=== PATIENT | female | born 1985 | race Caucasian/White ===

== ENCOUNTER 2016-09-21 09:43 | Emergency (ER) | payer BC, OTHER ==
[2016-09-21] MEDS ORDERED: ACETAMINOPHEN 325 MG TABLET PO ONE (13:45)
--- NOTE | 2016-09-21 13:45 | ER Document Report ---
HPI - HPI Onset: Yesterday Onset/Duration: Sudden Pain Level: 2 Context: 30-year-old female with 19 week twin is complaining of fever, runny nose and cough with generalized myalgias since yesterday. She came in to be checked because she does not feel the twins moving as much as usual. 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 Associated Symptoms: None Exacerbated by: Denies Relieved by: Denies Similar symptoms previously: Yes Recently seen / treated by doctor: No - ROS ROS below otherwise negative: Yes Systems Reviewed and Negative: Yes All other systems reviewed and negative - CARDIOVASCULAR Cardiovascular: DENIES: Chest pain - DERM Skin Color: Normal Past Medical History - General Information source: Patient - Social History Smoking Status: Never Smoker Chew tobacco use (# tins/day): No Frequency of alcohol use: None Drug Abuse: None Lives with: Spouse/Significant other Family History: Reviewed & Not Pertinent Patient has suicidal ideation: No Patient has homicidal ideation: No - Medical History Medical History: Negative Renal/ Medical History: Denies: Hx Peritoneal Dialysis Surgical Hx: Negative Vertical Provider Document - CONSTITUTIONAL Agree With Documented VS: Yes Exam Limitations: No Limitations General Appearance: No Apparent Distress - INFECTION CONTROL TRAVEL OUTSIDE OF THE [place] IN LAST 30 DAYS: No - HEENT HEENT: Pharyngeal Erythema - mild. negative: Conjuctival Injection Notes: boggy nares - NECK Neck: Supple, Lymphadenopathy-Right. negative: Lymphadenopathy-Left - RESPIRATORY Respiratory: Breath Sounds Normal, No Respiratory Distress O2 Sat by Pulse Oximetry: 99 - CARDIOVASCULAR Cardiovascular: Regular Rate, Regular Rhythm - GI/ABDOMEN Gastrointestinal: Abdomen Soft, Abdomen Non-Tender, No Organomegaly - MUSCULOSKELETAL/EXTREMETIES Musculoskeletal/Extremeties: SAADIA PAULA - NEURO Level of Consciousness: Awake, Alert - DERM Integumentary: Warm, Dry, No Rash Course - Re-evaluation Re-evalutation: 09/21/16 14:42 Looks well, discussed the case with Dr. Patino for disposition home which he agrees. - Vital Signs Vital signs: Temp Pulse Resp BP Pulse Ox 98.6 F 118 H 16 108/74 99 09/21/16 10:13 09/21/16 10:13 09/21/16 10:13 09/21/16 10:13 09/21/16 10:13 Discharge - Discharge Clinical Impression: influenza A, viable twins Condition: Good Disposition: HOME, SELF-CARE Instructions: Influenza ([facility]), Acetaminophen, Upper Respiratory Illness ([facility]) Additional Instructions: plenty of fluids to er if worse, any cramping or bleeding rest cool mist humidifier, wash it daily see your doctor for follow up, recheck on wednesday Forms: Return to Work Referrals: KORTNEY GUNDERSON MD [Primary Care Provider] - Follow up as needed
[2016-09-21 14:53] VITALS: BP 95/63
== END 2016-09-21 14:52 | disposition home or self-care (01) ==
LOC: ER 09:43
DX: J09.X2 Influenza due to identified novel influenza A virus with other respiratory manifestations (principal); O30.002 Twin pregnancy, unspecified number of placenta and unspecified number of amniotic sacs, second trimester; R50.9 Fever, unspecified; R09.89 Other specified symptoms and signs involving the circulatory and respiratory systems; R05 Cough; M79.1 Myalgia; Z3A.19 19 weeks gestation of pregnancy
CPT/HCPCS: 76815; 87804; 99284

== ENCOUNTER 2016-12-14 09:32 | Outpatient (CLI) | payer BC, OTHER ==
[2016-12-14 10:29] LABS: APPEARANCE,URINE SLIGHTLY-CLOUDY; BILIRUBIN,URINE NEGATIVE (NEGATIVE); GLUCOSE, URINE NEGATIVE (NEGATIVE); KETONES,URINE NEGATIVE (NEGATIVE); LEUKOCYTE ESTERASE,URINE NEGATIVE (NEGATIVE); NITRITE,URINE NEGATIVE (NEGATIVE); PROTEIN,URINE NEGATIVE (NEGATIVE); URINE SPECIFIC GRAVITY 1.009; UROBILINOGEN,URINE NEGATIVE mg/dL (<2.0)
[2016-12-14 10:47] LABS: URINE CREATININE 68.5 mg/dL (16-327); URINE PROTEIN 13.2 mg/dL (<12)
[2016-12-14 10:56] LABS: URINE BARBITURATES SCREEN NEGATIVE; URINE METHADONE SCREEN NEGATIVE; URINE OPIATES LOW NEGATIVE; URINE PHENCYCLIDINE SCREEN NEGATIVE
[2016-12-14 11:06] LABS: ABSOLUTE LYMPHOCYTES (AUTO) 1.6 10^3/uL (0.5-4.7); ABSOLUTE MONOCYTES (AUTO) 0.7 10^3/uL (0.1-1.4); ABSOLUTE NEUT (AUTO) 8.1 10^3/uL (1.7-8.2); BASOPHILS % (AUTO) 0.2 % (0-2); EOSINOPHILS % (AUTO) 0.3 % (0-6); HEMATOCRIT 36.6 % (36.0-47.0); HEMOGLOBIN 12.9 g/dL (12.0-15.5); HGB HCT DIFFERENCE 2.1; LYMPHOCYTES % (AUTO) 15.7 % (13-45); MEAN CORPUSCULAR HEMOGLOBIN 35.4 pg (27.0-33.4); MEAN CORPUSCULAR HGB CONC 35.3 g/dL (32.0-36.0); MEAN CORPUSCULAR VOLUME 100 fl (80-97); MONOCYTES % (AUTO) 6.4 % (3-13); RED BLOOD COUNT 3.64 10^6/uL (3.72-5.28); RED CELL DISTRIBUTION WIDTH 13.2 % (11.5-14.0); SEGMENTED NEUTROPHILS % (AUTO) 77.4 % (42-78); WHITE BLOOD COUNT 10.5 10^3/uL (4.0-10.5)
[2016-12-14 11:22] LABS: ALANINE AMINOTRANSFERASE 25 U/L (9-52); ALBUMIN 2.8 g/dL (3.5-5.0); ALKALINE PHOSPHATASE 103 U/L (38-126); ANION GAP 8 (5-19); ASPARTATE AMINO TRANSFERASE 17 U/L (14-36); BILIRUBIN,DIRECT 0.3 mg/dL (0.0-0.4); BILIRUBIN,TOTAL 0.5 mg/dL (0.2-1.3); BLOOD UREA NITROGEN 8 mg/dL (7-20); CALCIUM 9.2 mg/dL (8.4-10.2); CARBON DIOXIDE 19 mmol/L (22-30); CHLORIDE 109 mmol/L (98-107); GLUCOSE 78 mg/dL (75-110); LDH 404 U/L (313-618); POTASSIUM 4.3 mmol/L (3.6-5.0); SODIUM 135.8 mmol/L (137-145); TOTAL PROTEIN 4.9 g/dL (6.3-8.2); URIC ACID 5.8 mg/dL (2.5-6.2)
--- NOTE | 2016-12-14 12:29 | L&D Progress Notes ---
PROGRESS NOTES Datetime Report Generated by CPN: 12/14/2016 12:29 PROGRESS NOTE Comment: 31 yo presents from MFM for hypertensive workup pt reports headache and visual changes EDC 7/13/17 EGA 31.4 abdomen nontender FHTs appropriate for gestational age no elevated pressures today labs wnl thrombocytopenia noted-131 precautions reviewed follow up in office on fabby FETUS A Monitoring: External US SIGNATURE SIGNATURE: [id number] Assignment: Mayra Devine MD Signature: with User ID: [email or web address] : with User ID: [email or web address]
== END 2016-12-14 12:29 | disposition home or self-care (01) ==
LOC: LC 09:32
PROVIDERS: ATTEND Obstetrics & Gynecology
PROC: 4A1HXCZ Monitoring of Products of Conception, Cardiac Rate, External Approach (ICD-10-PCS; principal; 2016-12-14)
DX: O26.893 Other specified pregnancy related conditions, third trimester (principal); R51 Headache; O99.89 Other specified diseases and conditions complicating pregnancy, childbirth and the puerperium; H53.9 Unspecified visual disturbance; Z3A.31 31 weeks gestation of pregnancy
CPT/HCPCS: 36415; 80053; 80307; 81001; 82570; 83615; 84156; 84550; 85025

== ENCOUNTER → 2016-12-23 | Outpatient (CLI) | payer BC, OTHER ==
[2016-12-23 18:48] LABS: ABSOLUTE EOSINOPHILS # (AUTO) 0.1 10^3/uL (0.0-0.6); ABSOLUTE LYMPHOCYTES (AUTO) 1.9 10^3/uL (0.5-4.7); ABSOLUTE MONOCYTES (AUTO) 0.6 10^3/uL (0.1-1.4); ABSOLUTE NEUT (AUTO) 9.4 10^3/uL (1.7-8.2); BASOPHILS % (AUTO) 0.1 % (0-2); EOSINOPHILS % (AUTO) 0.5 % (0-6); HEMATOCRIT 38.4 % (36.0-47.0); HEMOGLOBIN 12.7 g/dL (12.0-15.5); HGB HCT DIFFERENCE -0.3; LYMPHOCYTES % (AUTO) 16.2 % (13-45); MEAN CORPUSCULAR HEMOGLOBIN 33.9 pg (27.0-33.4); MEAN CORPUSCULAR VOLUME 103 fl (80-97); MONOCYTES % (AUTO) 4.6 % (3-13); RED BLOOD COUNT 3.73 10^6/uL (3.72-5.28); RED CELL DISTRIBUTION WIDTH 13.8 % (11.5-14.0); SEGMENTED NEUTROPHILS % (AUTO) 78.6 % (42-78)
[2016-12-23 18:52] LABS: ALANINE AMINOTRANSFERASE 17 U/L (9-52); ALBUMIN 3.1 g/dL (3.5-5.0); ALKALINE PHOSPHATASE 120 U/L (38-126); ANION GAP 10 (5-19); ASPARTATE AMINO TRANSFERASE 19 U/L (14-36); BILIRUBIN,DIRECT 0.3 mg/dL (0.0-0.4); BILIRUBIN,TOTAL 0.5 mg/dL (0.2-1.3); BLOOD UREA NITROGEN 9 mg/dL (7-20); CALCIUM 9.5 mg/dL (8.4-10.2); CARBON DIOXIDE 18 mmol/L (22-30); CHLORIDE 107 mmol/L (98-107); CREATININE RESULT 0.71 mg/dL (0.52-1.25); GLUCOSE 126 mg/dL (75-110); LDH 383 U/L (313-618); POTASSIUM 3.7 mmol/L (3.6-5.0); TOTAL PROTEIN 5.6 g/dL (6.3-8.2); URIC ACID 6.1 mg/dL (2.5-6.2)
== END ==
LOC: OD 17:09
PROVIDERS: ATTEND Specialist
DX: O13.9 Gestational [pregnancy-induced] hypertension without significant proteinuria, unspecified trimester (principal); Z13.0 Encounter for screening for diseases of the blood and blood-forming organs and certain disorders involving the immune mechanism
CPT/HCPCS: 36415; 80053; 83615; 84550; 85025

== ENCOUNTER 2016-12-28 08:22 | Outpatient (CLI) | payer BC, OTHER ==
[2016-12-28 09:17] LABS: APPEARANCE,URINE SLIGHTLY-CLOUDY; BILIRUBIN,URINE NEGATIVE (NEGATIVE); GLUCOSE, URINE NEGATIVE (NEGATIVE); KETONES,URINE NEGATIVE (NEGATIVE); LEUKOCYTE ESTERASE,URINE NEGATIVE (NEGATIVE); NITRITE,URINE NEGATIVE (NEGATIVE); PROTEIN,URINE NEGATIVE (NEGATIVE); URINE SPECIFIC GRAVITY 1.008; UROBILINOGEN,URINE NEGATIVE mg/dL (<2.0)
[2016-12-28 09:27] LABS: ALANINE AMINOTRANSFERASE 20 U/L (9-52); ALBUMIN 2.9 g/dL (3.5-5.0); ALKALINE PHOSPHATASE 108 U/L (38-126); ANION GAP 7 (5-19); ASPARTATE AMINO TRANSFERASE 20 U/L (14-36); BILIRUBIN,DIRECT 0.4 mg/dL (0.0-0.4); BILIRUBIN,TOTAL 0.5 mg/dL (0.2-1.3); BLOOD UREA NITROGEN 10 mg/dL (7-20); CARBON DIOXIDE 19 mmol/L (22-30); CHLORIDE 111 mmol/L (98-107); CREATININE RESULT 0.76 mg/dL (0.52-1.25); GLUCOSE 91 mg/dL (75-110); LDH 415 U/L (313-618); POTASSIUM 4.2 mmol/L (3.6-5.0); SODIUM 136.6 mmol/L (137-145); TOTAL PROTEIN 5.3 g/dL (6.3-8.2); URIC ACID 6.8 mg/dL (2.5-6.2)
[2016-12-28 09:30] LABS: URINE BARBITURATES SCREEN NEGATIVE; URINE METHADONE SCREEN NEGATIVE; URINE OPIATES LOW NEGATIVE; URINE PHENCYCLIDINE SCREEN NEGATIVE
--- NOTE | 2016-12-28 09:35 | Non Stress Test Report ---
Non Stress Test Datetime Report Generated by CPN: 12/28/2016 09:35 DEMOGRAPHIC EGA NST: 33.4 INDICATION Indication for Study: Multiple Gestation MONITORING Monitor Explained: Monitor Explained; Test Explained; Patient Verbalized Understanding Time on Monitor: 12/28/2016 08:47 Time off Monitor: 12/28/2016 09:19 NST Duration: 32 NST INTERVENTIONS NST Interventions: PO Hydration BABY A: [id number] BABY A Movement : Present Contraction Frequency : x0 FHR Baseline : 1 Accelerations : 15X15 Decelerations : None Variability : Moderate 6-25bpm NST Review: Meets Criteria for Reactive NST NST Review and Verified By : D Bellavance RNC NST Results: Reactive BABY B Movement: Present FHR Baseline: 145 Accelerations: 15X15 Decelerations: None Variability: Moderate 6-25bpm NST Review: Meets Criteria for Reactive NST NST Reviewed And Verified By: D Bellavance RNC NST Results: Reactive NST REPORT Report Trigger: Send Report
[2016-12-28 10:54] LABS: ABSOLUTE EOSINOPHILS # (AUTO) 0.1 10^3/uL (0.0-0.6); ABSOLUTE LYMPHOCYTES (AUTO) 1.7 10^3/uL (0.5-4.7); ABSOLUTE MONOCYTES (AUTO) 0.7 10^3/uL (0.1-1.4); ABSOLUTE NEUT (AUTO) 7.9 10^3/uL (1.7-8.2); BASOPHILS % (AUTO) 0.2 % (0-2); EOSINOPHILS % (AUTO) 0.6 % (0-6); HEMATOCRIT 36.2 % (36.0-47.0); HEMOGLOBIN 12.3 g/dL (12.0-15.5); HGB HCT DIFFERENCE 0.7; LYMPHOCYTES % (AUTO) 16.6 % (13-45); MEAN CORPUSCULAR HEMOGLOBIN 34.6 pg (27.0-33.4); MEAN CORPUSCULAR HGB CONC 33.9 g/dL (32.0-36.0); MEAN CORPUSCULAR VOLUME 102 fl (80-97); RED BLOOD COUNT 3.54 10^6/uL (3.72-5.28); RED CELL DISTRIBUTION WIDTH 13.8 % (11.5-14.0); SEGMENTED NEUTROPHILS % (AUTO) 75.6 % (42-78); WHITE BLOOD COUNT 10.5 10^3/uL (4.0-10.5)
== END 2016-12-28 11:42 | disposition home or self-care (01) ==
LOC: LC 08:22
PROVIDERS: ATTEND Obstetrics & Gynecology
PROC: 4A1HXCZ Monitoring of Products of Conception, Cardiac Rate, External Approach (ICD-10-PCS; principal; 2016-12-28)
DX: O30.003 Twin pregnancy, unspecified number of placenta and unspecified number of amniotic sacs, third trimester (principal); Z3A.33 33 weeks gestation of pregnancy
CPT/HCPCS: 36415; 59025; 80053; 80307; 81001; 83615; 84550; 85025

== ENCOUNTER 2016-12-30 13:39 | Observation (INO) | payer BC, OTHER ==
[2016-12-30 14:17] LABS: ABSOLUTE LYMPHOCYTES (AUTO) 1.7 10^3/uL (0.5-4.7); ABSOLUTE MONOCYTES (AUTO) 0.6 10^3/uL (0.1-1.4); ABSOLUTE NEUT (AUTO) 8.4 10^3/uL (1.7-8.2); BASOPHILS % (AUTO) 0.2 % (0-2); EOSINOPHILS % (AUTO) 0.3 % (0-6); HEMATOCRIT 37.2 % (36.0-47.0); HEMOGLOBIN 12.7 g/dL (12.0-15.5); HGB HCT DIFFERENCE 0.9; LYMPHOCYTES % (AUTO) 15.6 % (13-45); MEAN CORPUSCULAR HEMOGLOBIN 34.8 pg (27.0-33.4); MEAN CORPUSCULAR HGB CONC 34.1 g/dL (32.0-36.0); MEAN CORPUSCULAR VOLUME 102 fl (80-97); MONOCYTES % (AUTO) 5.6 % (3-13); RED BLOOD COUNT 3.64 10^6/uL (3.72-5.28); RED CELL DISTRIBUTION WIDTH 13.7 % (11.5-14.0); SEGMENTED NEUTROPHILS % (AUTO) 78.3 % (42-78); WHITE BLOOD COUNT 10.7 10^3/uL (4.0-10.5)
[2016-12-30 14:20] LABS: APPEARANCE,URINE SLIGHTLY-CLOUDY; BILIRUBIN,URINE NEGATIVE (NEGATIVE); GLUCOSE, URINE NEGATIVE (NEGATIVE); KETONES,URINE NEGATIVE (NEGATIVE); LEUKOCYTE ESTERASE,URINE NEGATIVE (NEGATIVE); NITRITE,URINE NEGATIVE (NEGATIVE); PROTEIN,URINE 30 mg/dL (NEGATIVE); URINE SPECIFIC GRAVITY 1.014; UROBILINOGEN,URINE NEGATIVE mg/dL (<2.0)
[2016-12-30 14:28] LABS: URINE BARBITURATES SCREEN NEGATIVE; URINE METHADONE SCREEN NEGATIVE; URINE OPIATES LOW NEGATIVE; URINE PHENCYCLIDINE SCREEN NEGATIVE
[2016-12-30 14:33] LABS: URINE CREATININE 141.1 mg/dL (16-327); URINE PROTEIN 17.6 mg/dL (<12)
[2016-12-30 14:50] LABS: ALANINE AMINOTRANSFERASE 15 U/L (9-52); ALKALINE PHOSPHATASE 125 U/L (38-126); ANION GAP 6 (5-19); ASPARTATE AMINO TRANSFERASE 19 U/L (14-36); BILIRUBIN,DIRECT 0.3 mg/dL (0.0-0.4); BILIRUBIN,TOTAL 0.5 mg/dL (0.2-1.3); BLOOD UREA NITROGEN 10 mg/dL (7-20); CALCIUM 9.2 mg/dL (8.4-10.2); CARBON DIOXIDE 19 mmol/L (22-30); CHLORIDE 110 mmol/L (98-107); CREATININE RESULT 0.75 mg/dL (0.52-1.25); GLUCOSE 83 mg/dL (75-110); LDH 414 U/L (313-618); POTASSIUM 4.4 mmol/L (3.6-5.0); SODIUM 134.9 mmol/L (137-145); TOTAL PROTEIN 5.5 g/dL (6.3-8.2); URIC ACID 7.1 mg/dL (2.5-6.2)
--- NOTE | 2016-12-30 15:05 | Non Stress Test Report ---
Non Stress Test Datetime Report Generated by CPN: 12/30/2016 15:05 DEMOGRAPHIC EGA NST: 33.6 INDICATION Indication for Study: Ordered by Provider Indication for Study (NST) Other: pih work up VITAL SIGNS Temperature - NST: 99.2 Pulse - NST: 88 RESP - NST: 18 NBPSYS NST: 136 NBPDIA NST: 89 MONITORING Monitor Explained: Monitor Explained; Test Explained; Patient Verbalized Understanding Time on Monitor: 12/30/2016 14:30 Time off Monitor: 12/30/2016 15:04 NST Duration: 34 NST INTERVENTIONS NST Interventions: PO Hydration; Reposition Patient BABY A: [id number] BABY A Movement : Present Contraction Frequency : irregular FHR Baseline : 135 Accelerations : 15X15 Decelerations : None Variability : Moderate 6-25bpm NST Review: Meets Criteria for Reactive NST NST Review and Verified By : Casa Ibarra, RN BABY B Movement: Present FHR Baseline: 125 Accelerations: 15X15 Decelerations: None Variability: Moderate 6-25bpm NST Review: Meets Criteria for Reactive NST NST Results: Reactive NST REPORT Report Trigger: Send Report
[2016-12-31 06:00] LABS: ABSOLUTE EOSINOPHILS # (AUTO) 0.1 10^3/uL (0.0-0.6); ABSOLUTE LYMPHOCYTES (AUTO) 2.1 10^3/uL (0.5-4.7); ABSOLUTE MONOCYTES (AUTO) 0.7 10^3/uL (0.1-1.4); ABSOLUTE NEUT (AUTO) 6.4 10^3/uL (1.7-8.2); BASOPHILS % (AUTO) 0.4 % (0-2); EOSINOPHILS % (AUTO) 0.8 % (0-6); HEMATOCRIT 35.5 % (36.0-47.0); HEMOGLOBIN 12.2 g/dL (12.0-15.5); HGB HCT DIFFERENCE 1.1; LYMPHOCYTES % (AUTO) 22.4 % (13-45); MEAN CORPUSCULAR HEMOGLOBIN 35.1 pg (27.0-33.4); MEAN CORPUSCULAR HGB CONC 34.3 g/dL (32.0-36.0); MEAN CORPUSCULAR VOLUME 102 fl (80-97); RED BLOOD COUNT 3.47 10^6/uL (3.72-5.28); RED CELL DISTRIBUTION WIDTH 13.8 % (11.5-14.0); SEGMENTED NEUTROPHILS % (AUTO) 68.4 % (42-78); WHITE BLOOD COUNT 9.3 10^3/uL (4.0-10.5)
[2016-12-31 06:16] LABS: ALANINE AMINOTRANSFERASE 22 U/L (9-52); ALBUMIN 2.5 g/dL (3.5-5.0); ALKALINE PHOSPHATASE 105 U/L (38-126); ANION GAP 9 (5-19); ASPARTATE AMINO TRANSFERASE 17 U/L (14-36); BILIRUBIN,DIRECT 0.2 mg/dL (0.0-0.4); BILIRUBIN,TOTAL 0.3 mg/dL (0.2-1.3); BLOOD UREA NITROGEN 9 mg/dL (7-20); CARBON DIOXIDE 19 mmol/L (22-30); CHLORIDE 110 mmol/L (98-107); CREATININE RESULT 0.79 mg/dL (0.52-1.25); GLUCOSE 71 mg/dL (75-110); POTASSIUM 4.1 mmol/L (3.6-5.0); SODIUM 137.6 mmol/L (137-145); TOTAL PROTEIN 4.9 g/dL (6.3-8.2)
--- NOTE | 2016-12-31 07:25 | RADIOLOGY REPORT (SQ) ---
EXAM DESCRIPTION: U/S OB LIMITED COMPLETED DATE/TIME: 12/31/2016 6:43 am REASON FOR STUDY: TWIN POSITION/GEORGES. The patient is 33 weeks . COMPARISON: OB ultrasound 09/21/2016. TECHNIQUE: Limited transabdominal grayscale ultrasound for evaluation of specific requested obstetri vipul parameters. LIMITATIONS: None. FINDINGS: CERVICAL LENGTH: Not applicable. Greater than 20 weeks. Need transvaginal study if indicat ed. Closed. FETUS A: LVP: 5.7 cm. FHR: 140 beats per minute. PRESENTATION: Breech. FETUS B: LVP: 8.3 cm. FHR: 136 beats per minute. PRESENTATION: Transverse. IMPRESSION: LIMITED TWIN OBSTETRICAL ULTRASOUND WITH MEASURED PARAMETERS DELINEATED ABOVE. Trimester of : Third trimester - 28 weeks to delivery. TECHNICAL DOCUMENTATION: JOB ID: [id number] 2010 [employer]- All Rights Reserved
[2016-12-31] MEDS ORDERED: ACETAMINOPHEN 325 MG TABLET PO ONE (10:30)
[2016-12-31 14:41] LABS: URINE PROTEIN 19.5 mg/dL (<12)
--- NOTE | 2016-12-31 15:52 | PDOC DISCHARGE SUMMARY ---
General - Admit/Disc Date/PCP Admission Date/Primary Care Provider: 12/30/16 15:25 MICHELL PADILLA DO Discharge Date: 12/31/16 - Discharge Diagnosis (1) Twin gestation in third trimester Is this a current diagnosis for this admission?: Yes (2) Gestational hypertension Is this a current diagnosis for this admission?: Yes - Additional Information Home Medications: Metformin HCl 250 mg PO HSP PRN 12/14/16 Metformin HCl 500 mg PO AC 12/14/16 Pnv with Ca,No.72/Iron/FA [Pnv Plus Multivit Tab] 1 tab PO DAILY Aspirin [Aspirin 81 mg Chewable Tablet] 81 mg PO DAILY 12/30/16 Ferrous Sulfate [Iron] 1 tab PO DAILY 12/30/16 Magnesium Oxide/Mag Aa Chelate [Magnesium 300 Mg Capsule] 300 mg PO DAILY History of Present Illness History of Present Illness: CHAD HODGSON is a 31 year old female Hospital Course Hospital Course: monitoring of blood pressure and repeat pre e clampsia labs are stable. 24 hour urine protein result reviewed. Physical Exam - Physical Exam Vital Signs: Temp Pulse Resp BP Pulse Ox 97.8 F 80 16 142/94 H 100 12/31/16 11:29 12/31/16 11:29 12/31/16 11:29 12/31/16 11:29 12/31/16 11:29 Intake & Output 12/30/16 12/31/16 01/01/17 06:59 06:59 06:59 Intake Total 32 Balance 32 Weight 105.55 kg General appearance: PRESENT: no acute distress, cooperative Vascular exam: PRESENT: normal capillary refill GI/Abdominal exam: PRESENT: soft, other - gravid, nontender Extremities exam: PRESENT: +1 edema Result Laboratory Results: 12/31/16 05:35 12/31/16 05:35 12/31/16 12/31/16 12/31/16 05:35 05:35 05:35 WBC 9.3 RBC 3.47 L Hgb 12.2 Hct 35.5 L MCV 102 H MCH 35.1 H MCHC 34.3 RDW 13.8 Plt Count 104 L Seg Neutrophils % 68.4 Lymphocytes % 22.4 Monocytes % 8.0 Eosinophils % 0.8 Basophils % 0.4 Absolute Neutrophils 6.4 Absolute Lymphocytes 2.1 Absolute Monocytes 0.7 Absolute Eosinophils 0.1 Absolute Basophils 0.0 Sodium 137.6 Potassium 4.1 Chloride 110 H Carbon Dioxide 19 L Anion Gap 9 BUN 9 Creatinine 0.79 Est GFR ( Amer) > 60 Est GFR (Non-Af Amer) > 60 Glucose 71 L Uric Acid 6.7 H Calcium 9.0 Total Bilirubin 0.3 AST 17 ALT 22 Alkaline Phosphatase 105 Total Protein 4.9 L Albumin 2.5 L Ur 24 Hour Volume Ur Total Protein 24 Hr 12/31/16 13:55 WBC RBC Hgb Hct MCV MCH MCHC RDW Plt Count Seg Neutrophils % Lymphocytes % Monocytes % Eosinophils % Basophils % Absolute Neutrophils Absolute Lymphocytes Absolute Monocytes Absolute Eosinophils Absolute Basophils Sodium Potassium Chloride Carbon Dioxide Anion Gap BUN Creatinine Est GFR ( Amer) Est GFR (Non-Af Amer) Glucose Uric Acid Calcium Total Bilirubin AST ALT Alkaline Phosphatase Total Protein Albumin Ur 24 Hour Volume 910 Ur Total Protein 24 Hr 177 Heartbeat/NST: reactive x 2 Impressions: Obstetrics Ultrasound 12/31/16 00:00 IMPRESSION: LIMITED TWIN OBSTETRICAL ULTRASOUND WITH MEASURED PARAMETERS DELINEATED ABOVE. Trimester of : Third trimester - 28 weeks to delivery. Plan Discharge Plan: follow up twice weekly with [facility] to have NSTs, GEORGES and preE bloodwork w/ prot/ creat twice a week as well. Strict Pre E precautions reviewed with patient and . discussed the criteria for severe PreE vs mild. Explained that she is gestational hypertensive at the least and that she is at a significant risk for becoming PreE hence the close follow up with labwork.
[2016-12-31 16:33] VITALS: BP 131/83
--- NOTE | 2017-01-04 16:38 | Delivery Summary ---
Del Sum A-C Datetime Report Generated by CPN: 01/04/2017 16:38 DELIVERY PERSONNEL DELIVERY PERSONNEL: [id number] LABOR SUMMARY EDC: 02/11/2017 00:00 No. Babies in Womb: 2 LABOR INFORMATION Group B Beta Strep: UNKNOWN
== END 2016-12-31 16:55 | disposition home or self-care (01) ==
LOC: LC 13:39 → LR 15:25 → 2N 18:26
PROVIDERS: ADMIT Obstetrics & Gynecology; ATTEND Obstetrics & Gynecology
PROC: 4A0HXCZ Measurement of Products of Conception, Cardiac Rate, External Approach (ICD-10-PCS; principal; 2016-12-30)
DX: O13.3 Gestational [pregnancy-induced] hypertension without significant proteinuria, third trimester (principal); O30.003 Twin pregnancy, unspecified number of placenta and unspecified number of amniotic sacs, third trimester; Z3A.33 33 weeks gestation of pregnancy; Z79.84 Long term (current) use of oral hypoglycemic drugs; Z79.82 Long term (current) use of aspirin; Z79.899 Other long term (current) drug therapy
CPT/HCPCS: 36415 ×2; 83615; 84156 ×2; 84550 ×2; 82570; 85025 ×2; 80053 ×2; 81001; 80307; 76815; 59025; G0378 ×2; G0379

== ENCOUNTER 2017-01-04 16:51 | Inpatient (IN) | payer BC, OTHER ==
[2017-01-04 17:36] LABS: ABSOLUTE LYMPHOCYTES (AUTO) 2.7 10^3/uL (0.5-4.7); ABSOLUTE MONOCYTES (AUTO) 0.8 10^3/uL (0.1-1.4); ABSOLUTE NEUT (AUTO) 6.6 10^3/uL (1.7-8.2); BASOPHILS % (AUTO) 0.3 % (0-2); EOSINOPHILS % (AUTO) 0.3 % (0-6); HEMATOCRIT 38.4 % (36.0-47.0); HGB HCT DIFFERENCE 0.6; LYMPHOCYTES % (AUTO) 26.7 % (13-45); MEAN CORPUSCULAR HEMOGLOBIN 34.5 pg (27.0-33.4); MEAN CORPUSCULAR HGB CONC 33.7 g/dL (32.0-36.0); MEAN CORPUSCULAR VOLUME 102 fl (80-97); MONOCYTES % (AUTO) 8.1 % (3-13); RED BLOOD COUNT 3.76 10^6/uL (3.72-5.28); RED CELL DISTRIBUTION WIDTH 13.9 % (11.5-14.0); SEGMENTED NEUTROPHILS % (AUTO) 64.6 % (42-78); WHITE BLOOD COUNT 10.2 10^3/uL (4.0-10.5)
[2017-01-04 17:49] LABS: ALANINE AMINOTRANSFERASE 25 U/L (9-52); ALBUMIN 3.1 g/dL (3.5-5.0); ALKALINE PHOSPHATASE 128 U/L (38-126); ANION GAP 11 (5-19); ASPARTATE AMINO TRANSFERASE 23 U/L (14-36); BILIRUBIN,DIRECT 0.2 mg/dL (0.0-0.4); BILIRUBIN,TOTAL 0.4 mg/dL (0.2-1.3); BLOOD UREA NITROGEN 16 mg/dL (7-20); CALCIUM 9.1 mg/dL (8.4-10.2); CARBON DIOXIDE 18 mmol/L (22-30); CHLORIDE 109 mmol/L (98-107); CREATININE RESULT 0.87 mg/dL (0.52-1.25); GLUCOSE 89 mg/dL (75-110); LDH 482 U/L (313-618); POTASSIUM 4.3 mmol/L (3.6-5.0); SODIUM 137.8 mmol/L (137-145); TOTAL PROTEIN 5.5 g/dL (6.3-8.2); URIC ACID 7.6 mg/dL (2.5-6.2)
[2017-01-04 17:59] LABS: APPEARANCE,URINE SLIGHTLY-CLOUDY; BILIRUBIN,URINE NEGATIVE (NEGATIVE); GLUCOSE, URINE NEGATIVE (NEGATIVE); KETONES,URINE NEGATIVE (NEGATIVE); LEUKOCYTE ESTERASE,URINE NEGATIVE (NEGATIVE); NITRITE,URINE NEGATIVE (NEGATIVE); PROTEIN,URINE 100 mg/dL (NEGATIVE); URINE SPECIFIC GRAVITY 1.025; UROBILINOGEN,URINE NEGATIVE mg/dL (<2.0)
[2017-01-04 18:16] LABS: URINE BARBITURATES SCREEN NEGATIVE; URINE METHADONE SCREEN NEGATIVE; URINE OPIATES LOW NEGATIVE; URINE PHENCYCLIDINE SCREEN NEGATIVE
--- NOTE | 2017-01-04 19:02 | Non Stress Test Report ---
Non Stress Test Datetime Report Generated by CPN: 01/04/2017 19:01 DEMOGRAPHIC EGA NST: 34.4 INDICATION Indication for Study: Multiple Gestation; Gestational Hypertension; Ordered by Provider; Other Indication for Study (NST) Other: PRE-E MONITORING Monitor Explained: Monitor Explained; Test Explained; Patient Verbalized Understanding Time on Monitor: 01/04/2017 17:26 Time off Monitor: 01/04/2017 18:04 NST Duration: 38 NST INTERVENTIONS NST Interventions: Reposition Patient Physician Notified NST: DR PADILLA REVIEWED STRIP BABY A: [id number] BABY A Movement : Present Contraction Frequency : IRREG FHR Baseline : 130 Accelerations : 15X15 Decelerations : None Variability : Moderate 6-25bpm NST Review: Meets Criteria for Reactive NST NST Review and Verified By : Ivan Hood RN NST Results: Reactive BABY B Movement: Present FHR Baseline: 140 Accelerations: 15X15 Decelerations: None Variability: Moderate 6-25bpm NST Review: Meets Criteria for Reactive NST NST Reviewed And Verified By: Ivna Hood RN NST Results: Reactive NST REPORT Report Trigger: Send Report
[2017-01-04] MEDS ORDERED: ACETAMINOPHEN 325 MG TABLET PO PRN (19:05)
[2017-01-04] MEDS ORDERED: ZOLPIDEM TARTRATE 5 MG TABLET PO PRN (19:05)
[2017-01-04] MEDS ORDERED: ONDANSETRON 4 MG TAB.RAPDIS PO PRN (19:05)
[2017-01-05 07:38] LABS: HEMATOCRIT 34.7 % (36.0-47.0); HEMOGLOBIN 11.7 g/dL (12.0-15.5); HGB HCT DIFFERENCE 0.4; MEAN CORPUSCULAR HEMOGLOBIN 34.3 pg (27.0-33.4); MEAN CORPUSCULAR HGB CONC 33.8 g/dL (32.0-36.0); MEAN CORPUSCULAR VOLUME 102 fl (80-97); RED BLOOD COUNT 3.41 10^6/uL (3.72-5.28); RED CELL DISTRIBUTION WIDTH 13.7 % (11.5-14.0)
[2017-01-05 07:44] LABS: ALANINE AMINOTRANSFERASE 21 U/L (9-52); ALBUMIN 2.6 g/dL (3.5-5.0); ALKALINE PHOSPHATASE 109 U/L (38-126); ANION GAP 5 (5-19); ASPARTATE AMINO TRANSFERASE 20 U/L (14-36); BILIRUBIN,DIRECT 0.2 mg/dL (0.0-0.4); BILIRUBIN,TOTAL 0.3 mg/dL (0.2-1.3); BLOOD UREA NITROGEN 16 mg/dL (7-20); CALCIUM 9.2 mg/dL (8.4-10.2); CARBON DIOXIDE 21 mmol/L (22-30); CHLORIDE 110 mmol/L (98-107); GLUCOSE 67 mg/dL (75-110); LDH 403 U/L (313-618); POTASSIUM 4.4 mmol/L (3.6-5.0); SODIUM 135.6 mmol/L (137-145); TOTAL PROTEIN 4.9 g/dL (6.3-8.2)
[2017-01-05] MEDS ORDERED: METFORMIN HCL 500 MG TABLET PO SCH ×2 (08:00→18:00)
[2017-01-05 08:31] VITALS: BP 148/89
[2017-01-05] MEDS ORDERED: MAGNESIUM SULFATE 4 GM/100 ML RTUPB IV ONE (11:37)
--- NOTE | 2017-01-05 11:46 | Admission Physical ---
Datetime Report Generated by CPN: 01/05/2017 11:46 CURRENT ADMISSION Chief Complaint: Other Admit Impression- Other: Di-Di Twins Hypertension Admit Plan: Observation/Evaluation ALLERGIES Medication Allergies: Yes Medication Allergies: Penicillins (01/04/2017); erythromycin base (01/04/2017); amoxicillin (01/04/2017) Medication Allergies: Penicillins (12/28/2016); erythromycin base (12/28/2016); amoxicillin (12/28/2016) Medication Allergies: Penicillins (12/14/2016); erythromycin base (12/14/2016); amoxicillin (12/14/2016) Latex: No Latex Allergies Food Allergies: eggs OBSTETRICAL HISTORY EDC: 02/11/2017 00:00 : 1 Para: 0 Term: 0 : 0 SAB: 0 IAB: 0 Ectopic: 0 Livin Cesareans: 0 VBACs: 0 Multiple Births: 0 Gestational Diabetes: Yes Rh Sensitization: No Incompetent Cervix: No MICHAEL: No Infertility: No ART Treatment: No Uterine Anomaly: No IUGR: No Hx Previous C/S: No Macrosomia: No Hx Loss/Stillborn: No PIH: No Hx : No Placenta Previa/Abruption: No Depression/PP Depression: No PTL/PROM: No Post Hemorrhage: No Current Procedures: Ultrasound Obstetrical History Comments: G1: current, twins SEE RECORDS Alcohol: No Marijuana : No Cocaine: No Other Illicit Drugs: No Cigarettes: Never Smoker. 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 Surgery: No Heart Disease: No Hosp/Surgery: No Autoimmune Disorder: No Anesthetic Complications: No Kidney Disease: No Abnormal Pap Smear: Yes Neuro/Epilepsy: No Psychiatric Disorders: No Other Medical Diseases: No Hepatitis/Liver Disease: No Significant Family History: No Varicosities/Phlebitis: No Trauma/Violence : No Thyroid Dysfunction: No Medical History Comments: Insulin resistance due to PCOS, childhood asthma, no abln paps within 2 years INFECTIOUS HISTORY Gonorrhea: No Genital Herpes: No Chlamydia: No Tuberculosis: No Syphilis: No Hepatitis: No HIV/AIDS Exposure: No Rash or Viral Illness: No HPV: No PHYSICAL EXAM General: Normal HEENT: Normal Neurologic: Normal Thyroid: Deferred Heart: Normal Lungs: Normal Breast: Deferred Back: Normal Abdomen: Normal Genitourinary Exam: Normal Extremities: Normal DTRs: Normal Pelvic Type: Adequate Vital Signs: Reviewed MEMBRANES Membranes: Intact FETUS A FHR- Baseline: 130,140 Variability: Moderate 6-25bpm Accelerations: 15X15 Decelerations: None FHR Category: Category I Presentation: Transverse Admit Comment: Will admit for observation Will deliever for abnl lab results and/or severe range BP FETUS B Monitoring: External US Monitoring: External US Monitoring: External US Monitoring: External US Monitoring: External US PLANS FOR LABOR AND DELIVERY Labor and Delivery: None Pain Management: Epidural Feeding Preference: Breast Benefit of Breast Feed Discussed: Yes Circumcision: Yes INFORMED CONSENT Signature: with User ID: [email or web address]
--- NOTE | 2017-02-19 13:54 | PDOC TRANSFER SUMMARY ---
General Admission Date/PCP: 01/04/17 18:26 BRETTVIANEY Marc RANDY, DO - Transfer Diagnosis (1) Thrombocytopenia affecting Is this a current diagnosis for this admission?: Yes (2) Gestational hypertension Is this a current diagnosis for this admission?: Yes (3) Twin gestation in third trimester Is this a current diagnosis for this admission?: YesDiagnosis Summary: She has gestational hypertension. Her platelets were 111k yesterday and are now 88k. This was discussed with anesthesia. They asked that I transfer her to a tertiary center for care because of her low platelets. - Transfer Medications Home Medications: Metformin HCl 250 mg PO HSP PRN 12/14/16 Metformin HCl 500 mg PO AC 12/14/16 Pnv with Ca,No.72/Iron/FA [Pnv Plus Multivit Tab] 1 tab PO DAILY Aspirin [Aspirin 81 mg Chewable Tablet] 81 mg PO DAILY 12/30/16 Ferrous Sulfate [Iron] 1 tab PO DAILY 12/30/16 Magnesium Oxide/Mag Aa Chelate [Magnesium 300 Mg Capsule] 300 mg PO DAILY Transfer Medications: Current Medications Acetaminophen (Tylenol 325 Mg Tablet) 650 mg PO Q6HP PRN PRN Reason: FOR PAIN Stop: 02/03/17 19:04 Metformin HCl (Glucophage 500 Mg Tablet) 500 mg PO QAM [facility] Stop: 02/04/17 07:59 Metformin HCl (Glucophage 500 Mg Tablet) 250 mg PO QPM [facility] Stop: 02/04/17 17:59 Ondansetron HCl (Zofran Odt 4 Mg Tablet) 8 mg PO Q8HP PRN PRN Reason: FOR NAUSEA/VOMITING Stop: 02/03/17 19:04 Zolpidem Tartrate (Ambien 5 Mg Tablet) 10 mg PO HSP PRN PRN Reason: FOR INSOMNIA Stop: 02/03/17 19:04 - Allergies Allergies/Adverse Reactions: amoxicillin Allergy (Verified 01/04/17 17:07) erythromycin base [From Erythrocin] Allergy (Verified 01/04/17 17:07) Penicillins Allergy (Verified 01/04/17 17:07) Hospital Course Hospital Course: The pt was admitted for evaluation of her hypertension with the thought that she may need to be delivered. She has done well with her blood pressures. Her platelet count came back low today. She also complains of headache. She may need to be delivered by c section. Because of the thrombocytopenia we plan to transfer. Physical Exam Vital Signs: Temp Pulse Resp BP Pulse Ox 97.8 F 55 L 16 148/89 H 99 01/05/17 07:50 01/05/17 07:50 01/05/17 07:50 01/05/17 07:50 01/05/17 07:50 Intake & Output 01/04/17 01/05/17 01/06/17 06:59 06:59 06:59 Weight 108.25 kg General appearance: PRESENT: no acute distress Head exam: PRESENT: atraumatic Cardiovascular exam: PRESENT: RRR. ABSENT: diastolic murmur, rubs, systolic murmur Pulses: PRESENT: normal dorsalis pedis pul Results Laboratory Results: 01/05/17 06:57 01/05/17 06:57 01/04/17 01/04/17 01/04/17 17:15 17:16 17:16 WBC 10.2 RBC 3.76 Hgb 13.0 Hct 38.4 MCV 102 H MCH 34.5 H MCHC 33.7 RDW 13.9 Plt Count 111 L Seg Neutrophils % 64.6 Lymphocytes % 26.7 Monocytes % 8.1 Eosinophils % 0.3 Basophils % 0.3 Absolute Neutrophils 6.6 Absolute Lymphocytes 2.7 Absolute Monocytes 0.8 Absolute Eosinophils 0.0 Absolute Basophils 0.0 Sodium 137.8 Potassium 4.3 Chloride 109 H Carbon Dioxide 18 L Anion Gap 11 BUN 16 Creatinine 0.87 Est GFR ( Amer) > 60 Est GFR (Non-Af Amer) > 60 Glucose 89 Uric Acid 7.6 H Calcium 9.1 Total Bilirubin 0.4 AST 23 ALT 25 Alkaline Phosphatase 128 H Total Protein 5.5 L Albumin 3.1 L Urine Color YELLOW Urine Appearance SLIGHTLY-CLOUDY Urine pH 5.0 Ur Specific Crawford 1.025 Urine Protein 100 H Urine Glucose (UA) NEGATIVE Urine Ketones NEGATIVE Urine Blood NEGATIVE Urine Nitrite NEGATIVE Ur Leukocyte Esterase NEGATIVE Urine WBC (Auto) 4 Urine RBC (Auto) 4 Blood Type Antibody Screen 01/04/17 01/05/17 01/05/17 17:16 06:57 06:57 WBC 8.0 RBC 3.41 L Hgb 11.7 L Hct 34.7 L MCV 102 H MCH 34.3 H MCHC 33.8 RDW 13.7 Plt Count 88 L Seg Neutrophils % Lymphocytes % Monocytes % Eosinophils % Basophils % Absolute Neutrophils Absolute Lymphocytes Absolute Monocytes Absolute Eosinophils Absolute Basophils Sodium 135.6 L Potassium 4.4 Chloride 110 H Carbon Dioxide 21 L Anion Gap 5 BUN 16 Creatinine 0.90 Est GFR ( Amer) > 60 Est GFR (Non-Af Amer) > 60 Glucose 67 L Uric Acid Calcium 9.2 Total Bilirubin 0.3 AST 20 ALT 21 Alkaline Phosphatase 109 Total Protein 4.9 L Albumin 2.6 L Urine Color Urine Appearance Urine pH Ur Specific Crawford Urine Protein Urine Glucose (UA) Urine Ketones Urine Blood Urine Nitrite Ur Leukocyte Esterase Urine WBC (Auto) Urine RBC (Auto) Blood Type O POSITIVE Antibody Screen NEGATIVE Plan Discharge Plan: Plan to transfer to a tertiary care center for evaluation. Time Spent: Greater than 30 Minutes
== END 2017-01-05 12:41 | disposition short-term general hospital (02) | DRG 781 ==
LOC: LC 16:51 → LR 18:26 → 2S 20:35 → LR 01-05 12:00
PROVIDERS: ADMIT Obstetrics & Gynecology; ATTEND Obstetrics & Gynecology
PROC: 4A1HXCZ Monitoring of Products of Conception, Cardiac Rate, External Approach (ICD-10-PCS; principal; 2017-01-04)
DX: O14.13 Severe pre-eclampsia, third trimester (principal); O24.419 Gestational diabetes mellitus in pregnancy, unspecified control; O30.043 Twin pregnancy, dichorionic/diamniotic, third trimester; O99.283 Endocrine, nutritional and metabolic diseases complicating pregnancy, third trimester; E88.81 Metabolic syndrome and other insulin resistance; Z88.0 Allergy status to penicillin; Z91.012 Allergy to eggs; Z3A.34 34 weeks gestation of pregnancy
CPT/HCPCS: 36415; 59025; 80053; 80307; 81001; 82962; 83615; 84550; 85025; 85027; 86592; 86850; 86900; 86901; J3475